=== PATIENT | female | born 1995 | race Hispanic/Latino ===

== ENCOUNTER 2020-09-14 16:02 | Emergency (ER) | payer MEDICAID, OTHER ==
[~2020-09-14 16:02] MED LIST: ACET1TAB12 PO; IBUP-2070 PO
== END 2020-09-14 17:53 | disposition home or self-care (01) ==
LOC: EDH 16:02
DX: O26.891 Other specified pregnancy related conditions, first trimester (principal); R11.0 Nausea; Z98.890 Other specified postprocedural states; Z3A.01 Less than 8 weeks gestation of pregnancy
CPT/HCPCS: 36415; 84702